=== PATIENT | male | born 1980 | race American Indian/Alaskan Native ===

== ENCOUNTER 2018-12-14 08:09 | Emergency (ER) | payer OTHER ==
[2018-12-14] MEDS ORDERED: TORADOL IV ONE (08:48)
[2018-12-14 09:26] LABS: Basophils % (Auto) 0.2 % (0.0-1.8); Eosinophils # (Auto) 0.1 K/mm3 (0.0-0.4); Eosinophils % (Auto) 0.6 % (0.0-4.3); Hematocrit 45.1 % (35.5-45.6); Hemoglobin 15.7 gm/dl (11.8-15.2); Lymphocytes # (Auto) 1.7 K/mm3 (1.2-5.4); Lymphocytes % (Auto) 13.7 % (13.4-35.0); Mean Corpuscular HGB Conc 35 % (32-34); Mean Corpuscular Volume 90 fl (84-94); Monocytes # (Auto) 0.7 K/mm3 (0.0-0.8); Monocytes % (Auto) 5.6 % (0.0-7.3); Platelet Count 311 K/mm3 (140-440); Red Cell Distribution Width 12.5 % (13.2-15.2)
[2018-12-14 09:43] LABS: BUN/Creatinine Ratio 14; Blood Urea Nitrogen 11 mg/dL (9-20); Calcium 9.3 mg/dL (8.4-10.2); Hemolysis Index 0
--- NOTE | 2018-12-14 09:51 | Emergency Department Report ---
ED Chest Pain HPI - General Chief Complaint: Pain General Stated Complaint: UNDER RIGHT RIB CAGE/PAIN Time Seen by Provider: 12/14/18 08:37 Source: patient Mode of arrival: Ambulatory Limitations: No Limitations - History of Present Illness Initial Comments: Patient is a 38-year-old male who is presenting with pain in the right anterior posterior chest T5 region. Patient states pain has been present for approximately 8 days. Patient was seen here 6 days ago with the same right- sided pain and also left lower flank pain. Patient was diagnosed with 8 mm distal ureter stone. Patient states the left-sided pain is resolved at this time but the right-sided rib pain has not. Patient states pain is worse with movement and with breathing. He denies any cough congestion fevers or chills. Patient denies any trauma. Severity scale (0 -10): 9 - Related Data Previous Rx's Medication Instructions Recorded Last Taken Type Tamsulosin [Flomax] 0.4 mg PO QDAY 7 Days #7 cap 12/08/18 Unknown Rx oxyCODONE /ACETAMINOPHEN [Percocet 1 tab PO Q6HR PRN #15 tablet 12/08/18 Unknown Rx 5/325] Ibuprofen [Motrin 800 MG tab] 800 mg PO Q8HR PRN #10 tablet 12/14/18 Unknown Rx methOCARBAMOL [Robaxin TAB] 500 mg PO Q6H PRN #14 tablet 12/14/18 Unknown Rx Allergies Allergy/AdvReac Type Severity Reaction Status Date / Time No Known Allergies Allergy Unverified 12/08/18 11:23 Heart Score - HEART Score History: Slightly suspicious EKG: Normal Age: < 45 Risk factors: No known risk factors Troponin: < normal limit HEART Score: 0 ED Review of Systems ROS: Stated complaint: UNDER RIGHT RIB CAGE/PAIN Other details as noted in HPI Comment: All other systems reviewed and negative ED Past Medical Hx - Past Medical History Additional medical history: LIVER - Social History Smoking Status: Never Smoker Substance Use Type: None - Medications Home Medications: Home Medications Medication Instructions Recorded Confirmed Last Taken Type Tamsulosin [Flomax] 0.4 mg PO QDAY 7 Days #7 cap 12/08/18 Unknown Rx oxyCODONE /ACETAMINOPHEN [Percocet 1 tab PO Q6HR PRN #15 tablet 12/08/18 Unknown Rx 5/325] Ibuprofen [Motrin 800 MG tab] 800 mg PO Q8HR PRN #10 tablet 12/14/18 Unknown Rx methOCARBAMOL [Robaxin TAB] 500 mg PO Q6H PRN #14 tablet 12/14/18 Unknown Rx ED Physical Exam - General Limitations: No Limitations General appearance: alert, in no apparent distress - Head Head exam: Present: atraumatic, normocephalic - Eye Eye exam: Present: normal appearance - ENT ENT exam: Present: mucous membranes moist - Neck Neck exam: Present: normal inspection - Respiratory Respiratory exam: Present: normal lung sounds bilaterally, chest wall tenderness (right ribs). Absent: respiratory distress, wheezes, rales, rhonchi - Cardiovascular Cardiovascular Exam: Present: regular rate, normal rhythm, normal heart sounds. Absent: systolic murmur, diastolic murmur, rubs, gallop - GI/Abdominal GI/Abdominal exam: Present: soft, normal bowel sounds. Absent: distended, tenderness, guarding, rebound, rigid - Rectal Rectal exam: Present: deferred - Extremities Exam Extremities exam: Present: normal inspection - Back Exam Back exam: Present: normal inspection - Neurological Exam Neurological exam: Present: alert, oriented X3 - Psychiatric Psychiatric exam: Present: normal affect, normal mood - Skin Skin exam: Present: warm, dry, intact, normal color. Absent: rash ED Course - Reevaluation(s) Reevaluation #1: 12/14/18 09:50 Patient's pain is in a much different location than his previous kidney stone. Patient states chest pain is pleuritic. Patient is low risk for pulmonary embolus and therefore d-dimer was ordered. D-dimer was significantly elevated. CT angiogram of the chest chest has been ordered at this time. ED Medical Decision Making - Lab Data Result diagrams: 12/14/18 09:09 12/14/18 09:09 Lab Results 12/14/18 12/14/18 12/14/18 Range/Units 09:09 09:09 09:09 WBC 12.2 H (4.5-11.0) K/mm3 RBC 5.00 (3.65-5.03) M/mm3 Hgb 15.7 H (11.8-15.2) gm/dl Hct 45.1 (35.5-45.6) % MCV 90 (84-94) fl MCH 31 (28-32) pg MCHC 35 H (32-34) % RDW 12.5 L (13.2-15.2) % Plt Count 311 (140-440) K/mm3 Lymph % (Auto) 13.7 (13.4-35.0) % [place] % (Auto) 5.6 (0.0-7.3) % Eos % (Auto) 0.6 (0.0-4.3) % Baso % (Auto) 0.2 (0.0-1.8) % Lymph # 1.7 (1.2-5.4) K/mm3 [place] # 0.7 (0.0-0.8) K/mm3 Eos # 0.1 (0.0-0.4) K/mm3 Baso # 0.0 (0.0-0.1) K/mm3 Seg Neutrophils % 79.9 H (40.0-70.0) % Seg Neutrophils # 9.8 H (1.8-7.7) K/mm3 D-Dimer 982.42 H (0-234) ng/mlDDU Sodium 134 L (137-145) mmol/L Potassium 4.4 (3.6-5.0) mmol/L Chloride 95.7 L (98-107) mmol/L Carbon Dioxide 26 (22-30) mmol/L Anion Gap 17 mmol/L BUN 11 (9-20) mg/dL Creatinine 0.8 (0.8-1.5) mg/dL Estimated GFR > 60 ml/min BUN/Creatinine Ratio 14 % Glucose 120 H (75-100) mg/dL Calcium 9.3 (8.4-10.2) mg/dL - Radiology Data [facility] [address] [place] [address] Cat Scan Report Signed Patient: HANY RIOS MR#: [id number] : 1980 Acct:[id number] Age/Sex: 38 / M ADM Date: 12/14/18 Loc: ED Attending Dr: Ordering Physician: EVA CASTILLO MD Date of Service: 12/14/18 Procedure(s): CT angio chest Accession Number(s): [id number] cc: EVA CASTILLO MD CTA CHEST WITH IV CONTRAST INDICATION / CLINICAL INFORMATION: right pleuritic chest pain with elevated d-dimer. TECHNIQUE: Axial CT images were obtained through the chest after injection of 100 mL Omnipaque 350 IV contrast. 3 plane MIP and/or 3D reconstructions were produced. All CT scans at this location are performed using CT dose reduction for ALARA by means of automated exposure control. COMPARISON: Chest radiograph 12/14/2018 FINDINGS: PULMONARY ARTERIES: No pulmonary emboli. THORACIC AORTA: No significant abnormality. HEART: No significant abnormality. CORONARY ARTERIES: No significant calcification. PLEURA: No pleural effusion. No pneumothorax. LYMPH NODES: No significant adenopathy. LUNGS: No acute air space or interstitial disease. ADDITIONAL FINDINGS: None. UPPER ABDOMEN: No acute findings. SKELETAL STRUCTURES: No significant osseous abnormality. IMPRESSION: 1. No CT evidence for pulmonary embolism. 2. No acute findings. Signer Name: Giorgio Jj MD Signed: 12/14/2018 12:04 PM Workstation Name: [id number] Transcribed By: JOHNY Dictated By: Giorgio Jj MD Electronically Authenticated By: Giorgio Jj MD Signed Date/Time: 12/14/18 120 - Medical Decision Making Patient is a 38-year-old male who is presenting with some right-sided pleuritic discomfort in the right mid rib region. Patient states there is some pain with breathing. Patient had a d-dimer ordered which was positive. CTA of the chest was ordered and was negative for pulmonary embolus. CT also was negative for pneumonia or other acute abnormality. The review the CT abdomen and pelvis from several days ago which shows that the patient also had no cholelithiasis and a normal bile ducts. Thank you showed no significant abnormalities. Patient likely with some musculoskeletal chest pain. Patient started on muscle relaxant medication for symptomatically relief and will be discharged home. Critical care attestation.: If time is entered above; I have spent that time in minutes in the direct care of this critically ill patient, excluding procedure time. ED Disposition Clinical Impression: Chest wall pain Disposition: DC-01 TO HOME OR SELFCARE Is pt being admited?: No Does the pt Need Aspirin: No Condition: Stable Instructions: Costochondritis (ED), Musculoskeletal Pain (ED) Referrals: FAHAD FUENTES MD [Primary Care Provider] - 3-5 Days Time of Disposition: 12:37 Print Language: HUNGARIAN
--- NOTE | 2018-12-14 10:33 | XRay Report ---
CHEST 2 VIEWS INDICATION / CLINICAL INFORMATION: right cp. COMPARISON: None available. FINDINGS: SUPPORT DEVICES: None. HEART / MEDIASTINUM: No significant abnormality. LUNGS / PLEURA: No significant pulmonary or pleural abnormality. No pneumothorax. ADDITIONAL FINDINGS: No significant additional findings. IMPRESSION: 1. No acute findings. Signer Name: Grant Moreno MD Signed: 12/14/2018 10:29 AM Workstation Name: [id number]
--- NOTE | 2018-12-14 12:09 | Cat Scan Report ---
CTA CHEST WITH IV CONTRAST INDICATION / CLINICAL INFORMATION: right pleuritic chest pain with elevated d-dimer. TECHNIQUE: Axial CT images were obtained through the chest after injection of 100 mL Omnipaque 350 IV contrast. 3 plane MIP and/or 3D reconstructions were produced. All CT scans at this location are performed usin g CT dose reduction for ALARA by means of automated exposure control. COMPARISON: Chest radiograph 12/14/2018 FINDINGS: PULMONARY ARTERIES: No pulmonary emboli. THORACIC AORTA: No significant abnormality. HEART: No significant abnormality. CORONARY ARTERIES: No significant calcification. PLEURA: No pleural effusion. No pneumothorax. LYMPH NODES: No significant adenopathy. LUNGS: No acute air space or interstitial disease. ADDITIONAL FINDINGS: None. UPPER ABDOMEN: No acute findings. SKELETAL STRUCTURES: No significant osseous abnormality. IMPRESSION: 1. No CT evidence for pulmonary embolism. 2. No acute findings. Signer Name: Giorgio Jj MD Signed: 12/14/2018 12:04 PM Workstation Name: [id number]
== END 2018-12-14 12:45 | disposition home or self-care (01) ==
LOC: ED 08:09
DX: R07.81 Pleurodynia (principal); Z79.899 Other long term (current) drug therapy
CPT/HCPCS: 36415; 71046; 71275; 80048; 85025; 85379; 96374; 99284; J1885; Q9967

== ENCOUNTER 2020-04-23 13:50 | Emergency (ER) | payer SELFPAY ==
--- NOTE | 2020-04-23 14:59 | Event Note ---
ED Screening Note Date of service: 04/23/20 Time: 14:59 ED Screening Note: 39-year-old male presents to the emergency room for right chest pain that radiates to his back for approximately 8 days. This initial assessment/diagnostic orders/clinical plan/treatment(s) is/are subject to change based on patients health status, clinical progression and re- assessment by fellow clinical providers in the ED. Further treatment and workup at subsequent clinical providers discretion. Patient/guardian urged not to elope from the ED as their condition may be serious if not clinically assessed and managed. Initial orders include:
[2020-04-23 15:51] LABS: Basophils % (Auto) 0.4 % (0.0-1.8); Eosinophils % (Auto) 0.4 % (0.0-4.3); Hematocrit 47.3 % (35.5-45.6); Hemoglobin 16.3 gm/dl (11.8-15.2); Mean Corpuscular HGB Conc 34 % (32-34); Mean Corpuscular Volume 92 fl (84-94); Monocytes # (Auto) 0.1 K/mm3 (0.0-0.8); Monocytes % (Auto) 1.1 % (0.0-7.3); Platelet Count 270 K/mm3 (140-440); Red Blood Count 5.15 M/mm3 (3.65-5.03); Red Cell Distribution Width 14.2 % (13.2-15.2)
[2020-04-23 16:01] LABS: INR 0.83 (0.87-1.13); Partial Thromboplastin Time 29.7 Sec. (24.2-36.6)
[2020-04-23 16:10] LABS: Bilirubin,Direct 6.7 mg/dL (0-0.2)
[2020-04-23 16:12] LABS: Alanine Aminotransferase 537 units/L (7-56); Albumin 4.3 g/dL (3.9-5); Blood Urea Nitrogen 17 mg/dL (9-20); Calcium 9.7 mg/dL (8.4-10.2); Hemolysis Index 14
[2020-04-23 16:13] LABS: BUN/Creatinine Ratio 24
[2020-04-23 16:17] LABS: Hepatitis B Surface Antigen Non-Reactive (Negative); Hepatitis C Virus Antibody Non-Reactive (NonReactive)
--- NOTE | 2020-04-23 16:39 | Emergency Department Report ---
ED General Adult HPI - General Chief complaint: Chest Pain Stated complaint: VOMITTING/CHEST/BACK PAIN Time Seen by Provider: 04/23/20 16:32 Source: patient Mode of arrival: Ambulatory Limitations: No Limitations - History of Present Illness Initial comments: Is 39 years old male with no significant past medical history. Patient presented to the ER complaining of right sided chest pain mainly to the posterior area for the last 8 days. Patient also stated that he noticed that his skin color is turning to yellow. Patient denied any fever or chills. Patient stated that his doctor started him on tramadol for the last 3 weeks for back pain. 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 He also denied drinking alcohol. Patient denied any history of hepatitis before. - Related Data Previous Rx's Medication Instructions Recorded Last Taken Type Tamsulosin [Flomax] 0.4 mg PO QDAY 7 Days #7 cap 12/08/18 Unknown Rx oxyCODONE /ACETAMINOPHEN [Percocet 1 tab PO Q6HR PRN #15 tablet 12/08/18 Unknown Rx 5/325] Ibuprofen [Motrin 800 MG tab] 800 mg PO Q8HR PRN #10 tablet 12/14/18 Unknown Rx methOCARBAMOL [Robaxin TAB] 500 mg PO Q6H PRN #14 tablet 12/14/18 Unknown Rx Allergies Allergy/AdvReac Type Severity Reaction Status Date / Time No Known Allergies Allergy Unverified 12/08/18 11:23 ED Review of Systems ROS: Stated complaint: VOMITTING/CHEST/BACK PAIN Other details as noted in HPI Comment: All other systems reviewed and negative Constitutional: denies: chills, fever Respiratory: denies: cough, shortness of breath, SOB with exertion Cardiovascular: denies: chest pain, palpitations Gastrointestinal: denies: abdominal pain, nausea, vomiting, diarrhea, constipation, hematemesis, melena, hematochezia Genitourinary: denies: urgency Musculoskeletal: denies: back pain Neurological: denies: headache, weakness, numbness, paresthesias, confusion ED Past Medical Hx - Past Medical History Previous Medical History?: Yes Additional medical history: LIVER - Surgical History Past Surgical History?: No - Social History Smoking Status: Never Smoker Substance Use Type: Alcohol - Medications Home Medications: Home Medications Medication Instructions Recorded Confirmed Last Taken Type Tamsulosin [Flomax] 0.4 mg PO QDAY 7 Days #7 cap 12/08/18 Unknown Rx oxyCODONE /ACETAMINOPHEN [Percocet 1 tab PO Q6HR PRN #15 tablet 12/08/18 Unknown Rx 5/325] Ibuprofen [Motrin 800 MG tab] 800 mg PO Q8HR PRN #10 tablet 12/14/18 Unknown Rx methOCARBAMOL [Robaxin TAB] 500 mg PO Q6H PRN #14 tablet 12/14/18 Unknown Rx ED Physical Exam - General Limitations: No Limitations General appearance: alert, in no apparent distress - Head Head exam: Present: atraumatic - Eye Eye exam: Present: scleral icterus Pupils: Present: normal accommodation - ENT ENT exam: Present: normal exam, normal orophraynx, mucous membranes moist - Neck Neck exam: Present: normal inspection, full ROM. Absent: tenderness, meningismus - Respiratory Respiratory exam: Present: normal lung sounds bilaterally - Cardiovascular Cardiovascular Exam: Present: regular rate, normal rhythm, normal heart sounds - GI/Abdominal GI/Abdominal exam: Present: soft, normal bowel sounds. Absent: distended, tenderness, guarding, rebound, rigid, organomegaly, mass, bruit, pulsatile mass, hernia - Extremities Exam Extremities exam: Present: normal inspection, full ROM, normal capillary refill. Absent: tenderness, pedal edema, calf tenderness - Back Exam Back exam: Present: normal inspection, full ROM. Absent: CVA tenderness (R), CVA tenderness (L) - Neurological Exam Neurological exam: Present: alert, oriented X3, CN II-XII intact, normal gait, reflexes normal. Absent: motor sensory deficit - Psychiatric Psychiatric exam: Present: normal mood - Skin Skin exam: Present: warm, intact, other (Jaundiced.) ED Course Vital Signs 04/23/20 04/23/20 04/23/20 14:32 15:34 16:00 Temperature 98.1 F Pulse Rate 91 H 71 Respiratory 14 20 Rate Blood Pressure 136/100 134/97 Blood Pressure [Right] O2 Sat by Pulse 95 97 97 Oximetry 04/23/20 17:46 Temperature Pulse Rate 83 Respiratory 21 Rate Blood Pressure Blood Pressure 121/73 [Right] O2 Sat by Pulse 97 Oximetry ED Medical Decision Making - Lab Data Result diagrams: 04/23/20 15:12 04/23/20 15:12 - Radiology Data Radiology results: report reviewed - Medical Decision Making Is 39 years old male with no significant past medical history. Patient presented to the ER complaining of right sided chest pain mainly to the posterior area for the last 8 days. Patient also stated that he noticed that his skin color is turning to yellow. Patient denied any fever or chills. Patient stated that his doctor started him on tramadol for the last 3 weeks for back pain. 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 He also denied drinking alcohol. Patient denied any history of hepatitis before. Patient remained stable. Labs showed significantly elevated liver enzymes and bilirubin. CT abdomen and pelvis showed some intrahepatic and extrahepatic biliary ductal dilatation with no evidence of obstructing stone. Advise nonemergent outpatient MRCP or ERCP for further evaluation. Patient does not h ave any fever. Patient does not have any abdominal pain, nausea or vomiting. Patient symptoms and liver injury is most likely from tramadol that has been taking for 3 weeks however possibility of other pathology considered and patient given [facility] to follow-up with in the next 2 to 3 days. Patient also advised to return to the ER if he develop any new symptoms. Critical care attestation.: If time is entered above; I have spent that time in minutes in the direct care of this critically ill patient, excluding procedure time. ED Disposition Clinical Impression: Chest pain, Elevated liver enzymes, Jaundice Disposition: -01 TO HOME OR SELFCARE Is pt being admited?: No Condition: Stable Instructions: Chest Pain (ED) Additional Instructions: Discontinue taking tramadol. Referrals: [facility] [Provider Group] - 3-5 Days
[2020-04-23 17:56] LABS: Bilirubin,Urine MOD (Negative); Blood,Urine NEG (Negative); Color,Urine Amber (Yellow)
[2020-04-23 18:20] LABS: Ictotest,Urine Positive (Negative)
--- NOTE | 2020-04-23 18:21 | XRay Report ---
CHEST 1 VIEW INDICATION / CLINICAL INFORMATION: chest pain. COMPARISON: 12/14/2018 FINDINGS: SUPPORT DEVICES: None. HEART / MEDIASTINUM: No significant abnormality. LUNGS / PLEURA: No significant pulmonary or pleural abnormality. No pneumothorax. ADDITIONAL FINDINGS: No significant additional findings. IMPRESSION: 1. No acute findings. Signer Name: Joe Hoover MD Signed: 04/23/2020 6:17 PM Workstation Name: [id number]
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
[2020-04-23 20:01] VITALS: BP 111/62
== END 2020-04-23 20:20 | disposition home or self-care (01) ==
LOC: ED 13:50
DX: R07.89 Other chest pain (principal); R17 Unspecified jaundice; R94.5 Abnormal results of liver function studies; Z79.899 Other long term (current) drug therapy
CPT/HCPCS: 36415; 71045; 74177; 80053; 80074; 81001; 82140; 82247; 82248; 83690; 83735; 84100; 85025; 85610; 85730; 99284; Q9967; 80320; G0480